=== PATIENT | female | born 1985 ===

== ENCOUNTER 2020-04-28 01:01 | Emergency (ER) | payer OTHER ==
[~2020-04-28] VITALS: Ht 170.2 cm; Wt 75.0 kg
[2020-04-28 01:05] VITALS: BP 135/85
== END 2020-04-28 01:57 ==
LOC: ER 01:02
DX: F10.129 Alcohol abuse with intoxication, unspecified (principal); M79.601 Pain in right arm; M79.602 Pain in left arm; F17.200 Nicotine dependence, unspecified, uncomplicated; Z72.89 Other problems related to lifestyle; V87.7XXA Person injured in collision between other specified motor vehicles (traffic), initial encounter; Y93.89 Activity, other specified; Y92.488 Other paved roadways as the place of occurrence of the external cause; Y99.8 Other external cause status; Y90.9 Presence of alcohol in blood, level not specified
CPT/HCPCS: 99283